=== PATIENT | male | born 1955 | race Asian ===

== ENCOUNTER 2017-02-22 11:35 | Inpatient (IN) | END 2017-03-26 22:45 | DRG 853 ==

== ENCOUNTER 2017-03-26 22:57 | Inpatient (IN) | END 2017-04-04 16:30 | disposition home health service (06) | DRG 982 ==

== ENCOUNTER 2017-04-21 13:48 | Inpatient (IN) | END 2017-04-23 14:40 | disposition home or self-care (01) | DRG 690 ==

== ENCOUNTER 2017-05-04 10:24 | Emergency (ER) | END 2017-05-04 15:19 | disposition left against medical advice (07) ==